=== PATIENT | female | born 1995 | race Caucasian/White ===

== ENCOUNTER 2020-09-24 12:49 | Emergency (ER) | payer MEDICARE, OTHER ==
[~2020-09-24] VITALS: Ht 160 cm; Wt 79.4 kg
[2020-09-24] MEDS ORDERED: OMEPRAZOLE20 MG PO (18:03)
[2020-09-24] MEDS ORDERED: CEPHALEXIN500 M1 PO (18:03)
[2020-09-24] MEDS ORDERED: ONDANSETRON ODT8 MG PO (18:03)
== END 2020-09-24 18:22 | disposition home or self-care (01) ==
LOC: ED 12:49
DX: K29.00 Acute gastritis without bleeding (principal); N39.0 Urinary tract infection, site not specified; F17.200 Nicotine dependence, unspecified, uncomplicated; Z88.8 Allergy status to other drugs, medicaments and biological substances; Z91.040 Latex allergy status
CPT/HCPCS: 76705; 80053; 81001; 83690; 84703; 85025; 87077; 87088; 87186; 96374; 96375; 99284-25; C9113; J2405; J7030

== ENCOUNTER 2022-04-27 07:35 | Inpatient (IN) | payer MEDICARE, OTHER ==
[~2022-04-27] VITALS: Ht 160 cm; Wt 87.5 kg
--- NOTE | ~2022-04-27 | OR ---
[facility] [address], [place] [address] Draft DATE OF OPERATION: 04/28/2022 SURGEON: Jeferson Love DO [employer] CONSULTANT: Hitesh Rowley MD PROCEDURE: Repeat low-transverse . PREOPERATIVE DIAGNOSES: History of prior , COVID positive, substance use disorder, tobacco use, 39 weeks gestation. POSTOPERATIVE DIAGNOSES: Term , delivered; history of prior , COVID positive substance use disorder, tobacco use. ANESTHESIA: Spinal. BLOOD LOSS: 500 mL. FINDINGS: Normal-appearing bilateral tubes and ovaries. Minimal filmy scarring on the anterior uterus. Viable term female weighing 6 pounds 8 ounces in the right occiput anterior position. Apgars 9 and 9 at 1 and 5 minutes respectively. INDICATIONS: The patient is a 27-year-old female with history of prior . Risks, benefits, and alternatives to repeat were discussed and she elected to proceed. Of note, her routine COVID screen was positive, though she was asymptomatic. Risks and benefits of proceeding versus delaying surgery were discussed. We elected to proceed. DESCRIPTION OF PROCEDURE: The patient was taken back to the operating room, where she was given spinal anesthesia and prepped and draped in normal sterile fashion with a leftward tilt in supine position. Adequate anesthesia was confirmed. A Pfannenstiel incision was made with a scalpel through the patient's prior scar, carried down to the underlying layer of PATIENT NAME: SILVANO QUIGLEY OPERATIVE REPORT DATE OF : [birth year] REPORT #: [id number] PHYSICIAN: JEFERSON LOVE DO PCP: MARTIN MUIR REPORT IS CONFIDENTIAL AND NOT TO BE RELEASED WITHOUT AUTHORIZATION [facility] [address], [place] [address] Draft fascia, which was nicked at midline and incised laterally. These were extended with Gramajo scissors. Inferior margin of fascia was grasped and elevated with Jose clamps. Underlying rectus muscle was dissected off bluntly and sharply with Gramajo scissors. In similar fashion, superior margin of fascia was grasped and elevated with Jose clamps. Underlying rectus muscle was dissected off bluntly and sharply with Gramajo scissors. The peritoneum was entered bluntly and incision extended superiorly with Gramajo scissors and inferiorly with Metzenbaum scissors with good visualization and bladder noted to be well below, then further extended laterally with gentle traction. Sony retractor was placed and hysterotomy was made with a scalpel. Membranes pickups yielding moderate amount of clear fluid. Infant's head was easily elevated to the level of the incision followed by anterior followed by posterior shoulder and remainder of the 's body was easily delivered. The baby gave a strong spontaneous cry upon delivery. Cord was doubly clamped and cut and baby was handed off to waiting nursery team. Cord blood was collected for type and Nilesh. Placenta was expressed manually. Uterus was cleared of clots and debris. Stay suture was placed at the right apex with 0 Monocryl. Hysterotomy was closed in a double-layer closure with 0 Monocryl 1st in a running locked manner, 2nd in an imbricating manner. Persistent oozing was noted at midline and at the left apex. Figure of eight suture of 0 Monocryl was placed in each of these locations with resulting hemostasis. Pelvis was suction irrigated. Tubes and ovaries were examined with normal findings as noted above. Hemostasis was confirmed. Sony retractor was removed. Peritoneum was closed with 2-0 Vicryl in a running fashion. Rectus muscle was reapproximated at midline with 0 Vicryl in a simple interrupted fashion. Perforating vessels were cauterized with Bovie cautery. The rectus muscle was suction irrigated with warm sterile saline with hemostasis noted. Fascia was closed with 0 Vicryl in a running fashion, 1st working from right apex to midline and from left apex to midline with a 2nd suture meeting in the middle. Subcutaneous layer was examined and suction irrigated with warm sterile saline. Perforating vessels were cauterized with Bovie cautery with hemostasis resulting. Subcutaneous layer was reapproximated with 3-0 Vicryl in a running fashion and skin was closed with aimee. Uterus was Crede'd and noted to be firm without clots. Sponge and instrument counts were correct x2. The patient remained in the operating room for placement of TAP blocks per Anesthesia. Jeferson Love DO EMZ/MODL /[id number] PATIENT NAME: SILVANO QUIGLEY [place] OPERATIVE REPORT DATE OF : [birth year] REPORT #: [id number] PHYSICIAN: JEFERSON LOVE DO PCP: MARTIN MUIR REPORT IS CONFIDENTIAL AND NOT TO BE RELEASED WITHOUT AUTHORIZATION [address] [address] Draft Copies: ~ PATIENT NAME: SILVANO QUIGLEY [place] OPERATIVE REPORT DATE OF : [birth year] REPORT #: [id number] PHYSICIAN: JEFERSON LOVE DO PCP: MARTIN MUIR REPORT IS CONFIDENTIAL AND NOT TO BE RELEASED WITHOUT AUTHORIZATION
[~2022-04-27 07:35] MED LIST: CEPHALEXIN500 M1 PO; OMEPRAZOLE20 MG PO; ONDANSETRON ODT8 MG PO
--- NOTE | 2022-04-28 09:18 | NUR ---
04/28/22 0918 Sheets,Emily 0844 PT ARRIVED TO PACU ON RA, PT GRMACING OFF AND ON. PT REPORTS "HER FEET FEEL LIKE THEY NEED TO MOVE." SPINAL EDUCATION GIVEN. HOB INCREASED SLIGHTLY. PT DENIES NAUSEA. 0856 BABY TO CHEST WITH FBC RN. PT MOTHER AT BEDSIDE REASSURING PT. PT REPORTS 4/10 PAIN. 0910 PT REPORTS PAIN IS TOLERABLE AND DENIES NAUSEA. 0913 MINIMAL AMOUNT OF URINE NOTED IN PERERA, DARK YELLOW AND EDUCATION GIVEN.
--- NOTE | 2022-04-29 07:30 | PR ---
[facility] [address], [place] [address] Signed PP Progress Notes Datetime Report Generated by FAWN: 04/29/2022 07:30 SUBJECTIVE: [id number] Pain: Within Normal Limits Nausea/Vomiting: Denies Flatus: Yes Bowel Movement: No Vital Signs: [id number] Vital Signs: Reviewed; Within Normal Limits Cardiovascular: Normal Respiratory: Normal Abdomen/Uterus: Normal Extremities: Normal Incision: Normal Exam Comments: NAD, lying in bed RRR No dyspnea/ retractions Abd: SNTND, FFBU, dressing c/d/i with scant, marked, non-expanding strikethrough Ext: trace edema BLLE, neg Timi's BL IMPRESSION/PLAN/PROCEDURES: [id number] Impression: Normal Progression Plan: Continue Present Management Procedures: Rubella Other Procedures: Iron infusion Progress Notes: 27 yo POD#1 s/p RLTCS -progressing well postop, pain moderately controlled with percocet. Discussed importance of ice to incision, will try -acute on chronic anemia: hgb 8.7 this am from 10.2 on admission. Intermittent dizziness with ambulation. Risks / benefits / alternatives to iron infusion discussed, pt elects to proceed. Anticipate DC IV after iron infusion complete Remove dressing in shower later today Awaiting spontaneous void: discussed importance of frequent voiding attempts, pt has not tried in last two hours. Will try again, if no void then bladder scan and may require straight catheterization MMR prior to discharge, DC to home no sooner than tomorrow Signing Physician: Jeferson Love, DO *Electronically Signed* 04/29/22729 JEFERSON LOVE DO PATIENT NAME: SILVANO QUIGLEY [place] PROGRESS NOTE DATE OF : 97 PHYSICIAN: JEFERSON LOVE DO RPT #: [id number] REPORT IS CONFIDENTIAL AND NOT TO BE RELEASED WITHOUT AUTHORIZATION [address] [place] [address] Signed Copies: ~ *Electronically Signed* 04/29/22729 JEFERSON LOVE DO PATIENT NAME: SILVANO QUIGLEY [place] PROGRESS NOTE DATE OF : 97 PHYSICIAN: JEFERSON LOVE DO RPT #: [id number] REPORT IS CONFIDENTIAL AND NOT TO BE RELEASED WITHOUT AUTHORIZATION
--- NOTE | 2022-04-30 11:34 | PR ---
[facility] [address], [place] [address] Signed PP Progress Notes Datetime Report Generated by FAWN: 04/30/2022 11:34 SUBJECTIVE: [id number] Pain: Within Normal Limits Nausea/Vomiting: Denies Flatus: Yes Bowel Movement: No Vital Signs: [id number] Vital Signs: Reviewed; Within Normal Limits Cardiovascular: Normal Respiratory: Normal Abdomen/Uterus: Normal Lochia: Normal Breasts: Normal Extremities: Normal Incision: Normal Progress: Normal Exam Comments: NAD, sitting in bed holding baby RRR No dyspnea/ retractions Abd: SNTND, FFBU, Incision clean, intact, mild bleeding present without strikethrough on pad Ext: Trace BLLE edema, Neg Timi's BL IMPRESSION/PLAN/PROCEDURES: [id number] Impression: Normal Progression; Difficulties Plan: Continue Present Management; Discharge Procedures: Rubella Other Procedures: Rubella declined Progress Notes: Pt is a 27 yo POD #2 s/p RLTCS -progressing well postop/ -pain well-controlled with orals -ambulating, voiding, tolerating regular diet -bottle feeding at this time due to cracked nipples, discussed importance of pumping to maintain supply if not nursing -Incision with mild bleeding, otherwise clean/ intact, no surrounding erythema. Leave aimee in place, anticipate removal on Monday as outpatient. -MMR recommended, discussed, declined by pt -Anemia: acute on chronic, s/p IV iron infusion yesterday. Continue oral iron on discharge to home. *Electronically Signed* 04/30/22 113 JEFERSON LOVE DO PATIENT NAME: SILVANO QUIGLEY [place] PROGRESS NOTE DATE OF : 97 PHYSICIAN: JEFERSON LOVE DO RPT #: [id number] REPORT IS CONFIDENTIAL AND NOT TO BE RELEASED WITHOUT AUTHORIZATION [address] [place] [address] Signed Anticipate DC to home today Considering Nexplanon vs minipill Formula feeding with plans to return to Signing Physician: Jeferson Love DO Copies: ~ *Electronically Signed* 04/30/22 113 JEFERSON LOVE DO PATIENT NAME: SILVANO QUIGLEY PROGRESS NOTE DATE OF : 97 PHYSICIAN: JEFERSON LOVE DO RPT #: [id number] REPORT IS CONFIDENTIAL AND NOT TO BE RELEASED WITHOUT AUTHORIZATION
== END 2022-04-30 13:40 | disposition home or self-care (01) | DRG 786 ==
LOC: FBC 04-28 05:15
PROVIDERS: ADMIT Obstetrics & Gynecology; ATTEND Obstetrics & Gynecology
PROC: 10D00Z1 Extraction of Products of Conception, Low, Open Approach (ICD-10-PCS; principal; 2022-04-28 07:30)
DX: O34.211 Maternal care for low transverse scar from previous cesarean delivery (principal); U07.1 COVID-19; O98.52 Other viral diseases complicating childbirth; O99.334 Smoking (tobacco) complicating childbirth; F17.210 Nicotine dependence, cigarettes, uncomplicated; O99.52 Diseases of the respiratory system complicating childbirth; Z3A.39 39 weeks gestation of pregnancy; Z37.0 Single live birth; Z67.10 Type A blood, Rh positive; O99.02 Anemia complicating childbirth; D64.9 Anemia, unspecified
CPT/HCPCS: 36415; 76942; 85027; 86850; 86900; 86901; A9270; J0690; J1100; J1170; J2001; J2274; J2405; J2590; J2795; J3010; Q0138